=== PATIENT | female | born 1960 | race Caucasian/White ===

== ENCOUNTER → 2017-01-17 | Outpatient (CLI) | payer BC | END | disposition home or self-care (01) | LOC: RAD 17:12 | DX: M25.572 Pain in left ankle and joints of left foot (principal); R22.42 Localized swelling, mass and lump, left lower limb | CPT/HCPCS: 93971 ==

== ENCOUNTER 2017-02-14 15:03 | Emergency (ER) | payer BC ==
[~2017-02-14] VITALS: Ht 170.2 cm; Wt 75.0 kg
[2017-02-14 16:08] LABS: HEMATOCRIT 40.1 % (36.0-46.0); MCH 30.2 PG (29.0-34.0); MCHC 33.7 G/DL (30.0-36.0); MCV 89.7 FL (83-99); MEAN PLAT.VOLUME 8.7 uM^3 (9.5-12.4); PLATELET COUNT 226 K/uL (156-360); RBC DIS.WIDTH-CV 12.5 % (11.8-14.6); RBC DIS.WIDTH-SD 41.2 % (39-53); RED BLOOD COUNT 4.47 M/uL (3.80-5.20); WHITE BLOOD COUNT 7.3 K/uL (4.1-10.2)
[2017-02-14 16:19] LABS: CHLORIDE 108 mEq/L (99-109); D-DIMER ELISA 0.34 mg/L FEU (< 0.57); SODIUM 142 mEq/L (136-147)
[2017-02-14 16:20] LABS: GLUCOSE 89 mg/dL (70-99)
[2017-02-14 16:22] LABS: ANION GAP 11 MEQ/L (2-14)
[2017-02-14 16:24] LABS: GFR ESTIMATE (CALCULATED) > 59 mL/min/
[2017-02-14 16:25] LABS: UREA NITROGEN (BUN) 13 mg/dL (9-23)
[2017-02-14 16:32] LABS: TROP-I INTERPRETATION NEGATIVE; TROPONIN-I < 0.01 ng/mL (0.0-0.30)
[2017-02-14] MEDS ORDERED: PEPCID20 MG PO (16:51)
[2017-02-14] MEDS ORDERED: BENADRYL25 MG PO (16:51)
[2017-02-14] MEDS ORDERED: VENTOLIN HFA18 GM IH (17:09)
[2017-02-14 17:15] VITALS: BP 126/63
== END 2017-02-14 17:17 | disposition home or self-care (01) ==
LOC: RME 15:03 → EME 15:03 → RME 17:17
PROVIDERS: Nurse Practitioner Family
DX: J30.2 Other seasonal allergic rhinitis (principal); R06.00 Dyspnea, unspecified; Z87.891 Personal history of nicotine dependence
CPT/HCPCS: 71020; 80048; 84484; 85027; 85379; 93005; 94640; 99281; 99284; J1100

== ENCOUNTER 2017-07-12 03:32 | Inpatient (IN) | payer BC ==
[~2017-07-12] VITALS: Ht 170.2 cm; Wt 74.1 kg
[~2017-07-12 03:32] MED LIST: BENADRYL25 MG PO; PEPCID20 MG PO; VENTOLIN HFA18 GM IH
[2017-07-12 04:21] LABS: HEMATOCRIT 38.7 % (36.0-46.0); MCH 29.8 PG (29.0-34.0); MCHC 32.8 G/DL (30.0-36.0); MCV 90.8 FL (83-99); MEAN PLAT.VOLUME 8.7 uM^3 (9.5-12.4); PLATELET COUNT 281 K/uL (156-360); RBC DIS.WIDTH-CV 12.7 % (11.8-14.6); RBC DIS.WIDTH-SD 41.9 % (39-53); RED BLOOD COUNT 4.26 M/uL (3.80-5.20); WHITE BLOOD COUNT 9.9 K/uL (4.1-10.2)
[2017-07-12 04:31] LABS: CHLORIDE 106 mEq/L (99-109); POTASSIUM 3.5 mEq/L (3.7-5.4); SODIUM 141 mEq/L (136-147)
[2017-07-12 04:32] LABS: GLUCOSE 114 mg/dL (70-99)
[2017-07-12 04:34] LABS: ANION GAP 10 MEQ/L (2-14)
[2017-07-12 04:38] LABS: GFR ESTIMATE (CALCULATED) > 59 mL/min/; UREA NITROGEN (BUN) 13 mg/dL (9-23)
[2017-07-12 04:43] LABS: TROP-I INTERPRETATION NEGATIVE; TROPONIN-I < 0.01 ng/mL (0.0-0.30)
[2017-07-12 09:03] LABS: INTER. NORMALIZED RATIO 1.1; PROTHROMBIN TIME 12.6 SEC (10.2-12.9)
[2017-07-12 09:05] LABS: PTT 30.6 SEC (25-37)
[2017-07-12 11:07] LABS: TROP-I INTERPRETATION NEGATIVE; TROPONIN-I < 0.01 ng/mL (0.0-0.30)
[2017-07-12] MEDS ORDERED: ACID CONTROL150 MG PO (11:25)
[2017-07-12] MEDS ORDERED: BREO ELLIPTA 21 EACH IH (11:25)
[2017-07-12] MEDS ORDERED: ADVIL200 MG PO (11:26)
[2017-07-12] MEDS ORDERED: SINGULAIR10 MG PO (11:26)
[2017-07-12] MEDS ORDERED: ANTIFUNGAL (11:28)
[2017-07-12 12:55] VITALS: BP 124/73
[2017-07-12 16:13] VITALS: BP 119/64
[2017-07-12 16:50] LABS: TROP-I INTERPRETATION NEGATIVE; TROPONIN-I < 0.01 ng/mL (0.0-0.30)
[2017-07-12 23:45] VITALS: BP 136/79
[2017-07-13 05:48] LABS: HEMATOCRIT 33.3 % (36.0-46.0); MCH 30.6 PG (29.0-34.0); MCV 92.8 FL (83-99); MEAN PLAT.VOLUME 9.3 uM^3 (9.5-12.4); PLATELET COUNT 260 K/uL (156-360); RBC DIS.WIDTH-CV 12.7 % (11.8-14.6); RBC DIS.WIDTH-SD 43.2 % (39-53); RED BLOOD COUNT 3.59 M/uL (3.80-5.20); WHITE BLOOD COUNT 10.3 K/uL (4.1-10.2)
[2017-07-13 06:09] LABS: ALKALINE PHOSPHATASE 60 IU/L (3-129); ANION GAP 8 MEQ/L (2-14); CHLORIDE 108 MEQ/L (99-109); GFR ESTIMATE (CALCULATED) > 59 mL/min/; GLUCOSE 100 mg/dL (70-99); POTASSIUM 3.7 MEQ/L (3.7-5.4); SAMPLE HEMOLYSIS CHECK 0; SAMPLE ICTERIC CHECK 0; SAMPLE LIPEMIA CHECK 0; SODIUM 139 MEQ/L (136-147); TOTAL BILIRUBIN 0.4 MG/DL (0.0-1.0); UREA NITROGEN (BUN) 8 mg/dL (9-23)
[2017-07-13 07:46] VITALS: BP 117/69
[2017-07-13 15:36] VITALS: BP 111/61
[2017-07-13 23:53] VITALS: BP 139/64
[2017-07-14 05:41] LABS: HEMATOCRIT 30.9 % (36.0-46.0); MCH 31.2 PG (29.0-34.0); MCHC 34.3 G/DL (30.0-36.0); MCV 90.9 FL (83-99); MEAN PLAT.VOLUME 8.9 uM^3 (9.5-12.4); PLATELET COUNT 247 K/uL (156-360); RBC DIS.WIDTH-CV 12.8 % (11.8-14.6); WHITE BLOOD COUNT 6.9 K/uL (4.1-10.2)
[2017-07-14 07:29] VITALS: BP 139/75
[2017-07-14 11:10] VITALS: BP 131/78
[2017-07-14] MEDS ORDERED: LEVAQUIN750 MG PO (11:42)
[2017-07-14] MEDS ORDERED: ELIQUIS5 MG PO (11:42)
== END 2017-07-14 13:30 | disposition home or self-care (01) | DRG 175 ==
LOC: EME 03:32 → EDOF 09:08 → ENRESERV 09:10 → EDOF 09:55 → 5SOUTH 12:18
PROVIDERS: Nurse Practitioner Family; Physician Assistant
DX: I26.99 Other pulmonary embolism without acute cor pulmonale (principal); J18.9 Pneumonia, unspecified organism; I48.0 Paroxysmal atrial fibrillation; I82.432 Acute embolism and thrombosis of left popliteal vein; I82.412 Acute embolism and thrombosis of left femoral vein; I82.442 Acute embolism and thrombosis of left tibial vein; J45.909 Unspecified asthma, uncomplicated; K21.9 Gastro-esophageal reflux disease without esophagitis
CPT/HCPCS: 71275; 80048; 80053; 84484; 85027; 85379; 85610; 85730; 87040; 93005; 93970; 94010; 94640 76; 94799; 99202; 99281; 99285; J0456; J0696; J1885; J2270; J2405; J3010; J7030; J7050